=== PATIENT | female | born 1960 | race Caucasian/White ===

== ENCOUNTER 2023-12-24 21:12 | Emergency (ER) | payer BC ==
[~2023-12-24] VITALS: Ht 160 cm; Wt 65.2 kg
[2023-12-24] MEDS ORDERED: HYDR-3965 PO (22:34)
[2023-12-24] MEDS: HYDROcodone/acetaminophen 10/325mg tab PO ONE (23:24)
[2023-12-24 23:27] VITALS: BP 120/71; PULSE 61; RESP 18; TEMP 97.9; O2SAT 99
== END 2023-12-24 23:29 | disposition home or self-care (01) ==
LOC: ER 21:14 → EDBD 21:14 → ER 23:29
DX: S93.491A Sprain of other ligament of right ankle, initial encounter (principal); Z79.899 Other long term (current) drug therapy; X50.1XXA Overexertion from prolonged static or awkward postures, initial encounter; Y93.89 Activity, other specified; Y92.89 Other specified places as the place of occurrence of the external cause; Y99.8 Other external cause status
CPT/HCPCS: 73610; 99283; L4360